=== PATIENT | female | born 1970 | race African-American/Black ===

== ENCOUNTER → 2016-08-09 | Outpatient (CLI) | payer OTHER ==
--- NOTE | ~2016-08-09 | TST ---
[facility] [place] [address] TREADMILL STRESS TEST Name: SANTANA KRAUS Room #: REG [facility] CENTERJonahJonah#: [id number] Admission: 08/09/16 Attend Phys: Abel Whitmore, Discharge: Date of : 72 Date of Service: 08/09/165 Report #: [id number] THIS REPORT FOR: //name// CC: Abel Paiz INDICATION: Palpitations, heart murmur, resting EKG, sinus rhythm, poor septal R-wave progression. The patient exercised for 9 minutes on a standard Elbert protocol and achieved 158 beats per minute or 88% of her maximal predicted heart rate for age. The pretest blood pressure was 150/100 and sy with exercise to 188/100. The patient stopped exercising due to dyspnea and fatigue. She experienced no substernal chest pain or angina-like symptoms throughout exercise. Stress electrocardiogram demonstrated no significant dysrhythmias. There were no ST segment shifts diagnostic of myocardial ischemia. SUMMARY: 1. Maximal treadmill exercise study negative for exercise-induced myocardial ischemia. 2. There are no subjective signs of ischemia such as chest pain or angina-like symptoms. There was baseline hypertension with a hypertensive response to exercise. 3. The study was associated with good exercise capacity (10.4 mets). <ELECTRONICALLY SIGNED> By: Abel Whitmore MD, [facility] 08/13/16 0946 [id number] [id number] Abel Whitmore MD, FACC /nt
--- NOTE | ~2016-08-09 | 2DMMODE ---
[facility] [address] [place] [address] 2 D/M-MODE ECHOCARDIOGRAM Name: SANTANA KRAUS Room #: REG RadhaJonahParkJonah#: [id number] Admission: 08/09/16 Attend Phys: Abel Whitmore, Discharge: Date of : 72 Date of Service: 08/09/16 1323 Report #: [id number] THIS REPORT FOR: //name// Transthoracic Echocardiography Ordering physician: Abel Whitmore M.D., F.A.C.C. Referring physician: Abel Whitmore M.D., F.A.C.C. Brick Handler: HONEY Null Indications/History: Palpitations, Murmur. BP: 152 / HR: 55bpm Height: 64in Weight: 227.5lb 100 Study data: M-mode, complete 2D, complete spectral Doppler, and color Doppler. Location: Echo laboratory. Routine. Image quality was good. 2D measurements Normal Normal LVID ED 47.3mm 36-57 IVS ED 13.3mm 6-11 LVID ES 31.6mm 23-40 LVPW ED 14.4mm 6-11 LA volume 27ml/m2 16-28 AoRoot diam 31.5mm 21-37 index ED LVOT diameter 18-23 Findings: Left ventricle: The cavity size was normal. Wall thickness was increased in a pattern of mild LVH. Systolic function was normal. The estimated ejection fraction was in the range of 60% to 65%. Wall motion was normal. Right ventricle: The cavity size was normal. Systolic function was normal. Right atrium: The atrium was normal in size. Left atrium: The atrium was normal in size. Volume index: 27ml/m2 (S). Aortic valve: Structurally normal valve. Trileaflet. Doppler: There was no stenosis. No regurgitation. Peak velocity: 141cm/s (S). [facility] [address] [place] [address] 2 D/M-MODE ECHOCARDIOGRAM Name: SANTANA KRAUS Room #: REG CL Boogie#: [id number] Admission: 08/09/16 Attend Phys: Abel Whitmore, Discharge: Date of : 72 Date of Service: 08/09/16 1323 Report #: [id number] Mitral valve: Structurally normal valve. Doppler: There was no evidence for stenosis. Trivial regurgitation. Peak E-wave velocity: 106.8cm/s. Peak gradient: 4.6mm Hg (D). Peak A-wave velocity: 71.9cm/s. Tricuspid valve: Structurally normal valve. Doppler: There was no evidence for stenosis. Mild regurgitation. Regurgitant peak velocity: 225.6cm/s. Peak RV-RA gradient: 20mm Hg (S). Pulmonic valve: Structurally normal valve. Doppler: There was no evidence for stenosis. No regurgitation. Pericardium: There was no pericardial effusion. Aorta: Aortic root: The aortic root was normal in size. Pulmonary artery: Systolic pressure was estimated to be 25mm Hg. Diastolic function: Normal diastolic function. Systemic veins: Inferior vena cava: The vessel was normal in size; the respirophasic diameter changes were in the normal range (= 50%). Conclusions 1. Left ventricle: The cavity size was normal. Wall thickness was increased in a pattern of mild LVH. Systolic function was normal. The estimated ejection fraction was in the range of 60% to 65%. Wall motion was normal. Normal diastolic function. 2. Aortic valve: Structurally normal valve. Trileaflet. There was no stenosis. No regurgitation. 3. Mitral valve: Structurally normal valve. Trivial regurgitation. 4. Pulmonary arteries: Systolic pressure was estimated to be 25mm Hg. 5. Pericardium, extracardiac: There was no pericardial effusion. <ELECTRONICALLY SIGNED> By: Abel Whitmore MD, [facility] 08/09/161847 1323 47 Abel Whitmore MD, [facility] /jewels
== END ==
LOC: CV 10:00
DX: R00.2 Palpitations (principal); R01.1 Cardiac murmur, unspecified